=== PATIENT | female | born 1990 | race African-American/Black ===

== ENCOUNTER 2024-07-11 11:56 | Emergency (ER) | payer SELFPAY ==
[2024-07-11] MEDS ORDERED: dexAMETHasone 10 MG/ML VIAL ONE (13:00)
--- NOTE | 2024-07-11 13:38 | RAD REPORT ---
Procedure: Chest Pa And Lat (2 Views) HISTORY: Cough COMPARISON: none FINDINGS: The lungs appear clear of acute infiltrate. No significant pleural effusion noted. The heart is normal size. IMPRESSION: No acute abnormality is displayed.
[2024-07-11 13:40] LABS: Influenza A Ag Negative; Influenza B Ag Negative; SARS-CoV-2 Antigen Rapid Res Negative (Negative)
--- NOTE | 2024-07-11 13:55 | ER ---
Nurse's Notes [facility] Name: Estela Rowe Age: 34 yrs Sex: Female : 1990 Arrival Date: 07/11/2024 Time: 11:56 Bed 10 Private MD: Diagnosis: Streptococcal tonsillitis Presentation: 07/11 12:18 Chief complaint: Patient states: Cough, congestion, WILSON, body aches, sore throat since ll1 . Coronavirus screen: Client denies travel out of the [place] in the last 14 days. congestion, cough unrelated to allergies, fatigue, fever, headache, Client presents with at least one sign or symptom that may indicate coronavirus-19. Standard/surgical mask placed on the client. Ebola Screen: Patient denies travel to an Ebola-affected area in the 21 days before illness onset. Resp Distress? No respiratory distress is noted at this time. Initial Sepsis Screen: Does the patient meet any 2 criteria? No. Patient's initial sepsis screen is negative. Does the patient have a suspected source of infection? No. Patient's initial sepsis screen is negative. Risk Assessment: Do you want to hurt yourself or someone else? Patient reports no desire to harm self or others. Onset of symptoms was July 09, 2024. 12:18 Method Of Arrival: Ambulatory ll1 12:18 Acuity: BELA 4 ll1 Triage Assessment: 12:18 General: Appears in no apparent distress. Behavior is calm, cooperative, appropriate ll1 for age. General: Reports fatigue for. Pain: Complains of pain in head Quality of pain is described as aching. EENT: Reports nasal discharge pain when swallowing. Neuro: Reports headache. Respiratory: Reports cough that is. 14:09 Respiratory: No deficits noted. 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 - Infectious Disease History:: Denies. - Social history:: Smoking status: Patient denies any tobacco usage or history of. Screenin:18 [facility] ED Fall Risk Assessment (Adult) History of falling in the last 3 months, ap3 including since admission No falls in past 3 months (0 pts) Confusion or Disorientation No (0 pts) Intoxicated or Sedated No (0 pts) Impaired Gait No (0 pts) Mobility Assist Device Used No (0 pt) Altered Elimination No (0 pt) Score/Fall Risk Level 0 - 2 = Low Risk Oriented to surroundings, Maintained a safe environment, Educated pt \T\ family on fall prevention, incl call for assistance when getting out of bed, Assessed \T\ reinforced patient's understanding of fall precautions, Hourly rounding (assess needs \T\ fall precautionary measures) done, Used ambulatory aids as needed (educated on \T\ assisted with). Abuse screen: Denies threats or abuse. Nutritional screening: No deficits noted. Tuberculosis screening: No symptoms or risk factors identified. Assessment: 13:17 General: Appears ill, Behavior is calm, cooperative, appropriate for age. Pain: ap3 Complains of pain in head. Neuro: Level of Consciousness is awake, alert, obeys commands, Oriented to person, place, time, situation, Appropriate for age. Cardiovascular: Patient's skin is warm and dry. Respiratory: Airway is patent Respiratory effort is even, unlabored, Respiratory pattern is regular, symmetrical. Vital Signs: 12:18 BP 143 / 88; Pulse 78; Resp 18; Temp 98.5(O); Pulse Ox 100% ; Weight 122.47 kg; Height ll1 5 ft. 6 in. ; Pain 7/10; 12:18 Body Mass Index 43.58 (122.47 kg, 167.64 cm) ll1 12:18 Pain Scale: Adult ll1 ED Course: 12:00 Patient arrived in ED. rg4 12:20 Triage completed. ll1 12:20 Arm band placed on Patient placed in an exam room, on a stretcher. ll1 12:21 Cassandra Tracey, PAU is Primary Nurse. ap3 12:26 Rivera Garcia FNP-C is PHCP. dr5 12:26 Hemanth Queen MD is Attending Physician. dr5 13:14 Group A Streptococcus Rapid Sent. ap3 13:14 COVID-19 Ag + Flu A+B Ag Sent. ap3 13:18 No provider procedures requiring assistance completed. ap3 13:24 Chest Pa And Lat (2 Views) XRAY In Process Unspecified. EDMS 14:09 Patient did not have IV access during this emergency room visit. ap3 14:10 Patient has correct armband on for positive identification. Adult w/ patient. Provided ap3 Education on: medications prior to administration . Administered Medications: 13:14 Drug: Dexamethasone IM 10 mg IM once Route: IM; Site: right deltoid; ap3 14:09 Follow up: Response: No adverse reaction; Pain is decreased ap3 Medication: 14:10 VIS not applicable for this client. ap3 Outcome: 13:55 Discharge ordered by . dr5 14:09 Condition: good ap3 14:11 Discharged to home ambulatory, with family, ap3 14:11 Discharge instructions given to patient, family, Instructed on discharge instructions, follow up and referral plans. medication usage, Demonstrated understanding of instructions, follow-up care, medications, Prescriptions given X 1, 14:11 Patient left the ED. ap3 Signatures: Dispatcher [employer] EDMN Brittnee Saunders rg4 Cassandra Tracey RN RN ap3 Tina Donato RN RN ll1 Rivera Garcia, PLANNER SCHEDULER-C PLANNER SCHEDULER-Cdr5 Corrections: (The following items were deleted from the chart) 13:16 12:18 EENT: Reports nasal discharge ll1 ll1
--- NOTE | 2024-07-11 13:55 | EDPHYS ---
Physician Documentation [facility] Name: Estela Rowe Age: 34 yrs Sex: Female : 1990 Arrival Date: 07/11/2024 Time: 11:56 Bed 10 Private MD: ED Physician Hemanth Queen HPI: 07/11 15:51 This 34 yrs old Black Female presents to ER via Ambulatory with complaints of dr5 Congestion, Headache. 15:51 Onset: The symptoms/episode began/occurred 2 day(s) ago. Patient is a 34-year-old dr5 female with no past history coming in with sore throat, cough, congestion this been going on for the past 2 days. Patient reports that she has been congested with subjective fevers. Patient has taken NyQuil and DayQuil with mild relief. 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 - Infectious Disease History:: Denies. - Social history:: Smoking status: Patient denies any tobacco usage or history of. ROS: 15:51 Constitutional: as per hpi dr5 Exam: 15:51 Constitutional: This is a well developed, well nourished patient who is awake, alert, dr5 and in no acute distress. Head/Face: Normocephalic, atraumatic. Eyes: Pupils equal round and reactive to light, extra-ocular motions intact. Lids and lashes normal. Conjunctiva and sclera are non-icteric and not injected. Cornea within normal limits. Periorbital areas with no swelling, redness, or edema. Neck: Trachea midline, no thyromegaly or masses palpated, and no cervical lymphadenopathy. Supple, full range of motion without nuchal rigidity, or vertebral point tenderness. No Meningismus. Chest/axilla: Normal chest wall appearance and motion. Nontender with no deformity. No lesions are appreciated. Cardiovascular: Regular rate and rhythm with a normal S1 and S2. Normal PMI, no JVD. No pulse deficits. Respiratory: Lungs have equal breath sounds bilaterally, clear to auscultation. No rales, rhonchi or wheezes noted. No increased work of breathing, no retractions or nasal flaring. Back: No spinal tenderness. No costovertebral tenderness. Full range of motion. Skin: Warm, dry with normal turgor. Normal color with no rashes, no lesions, and no evidence of cellulitis. Neuro: Awake and alert, GCS 15, oriented to person, place, time, and situation. Cranial nerves II-XII grossly intact. Motor strength 5/5 in all extremities. Sensory grossly intact. Cerebellar exam normal. Normal gait. 15:51 ENT: Mouth: Posterior pharynx: Airway: normal, Tonsils: bilaterally enlarged, with erythema, with exudate, 15:51 ENT: Posterior pharynx: Uvula: normal, midline, dr5 Vital Signs: 12:18 BP 143 / 88; Pulse 78; Resp 18; Temp 98.5(O); Pulse Ox 100% ; Weight 122.47 kg; Height ll1 5 ft. 6 in. ; Pain 7/10; 12:18 Body Mass Index 43.58 (122.47 kg, 167.64 cm) ll1 12:18 Pain Scale: Adult ll1 MDM: 12:27 Medical Screening Exam initiated dr5 15:51 Differential diagnosis: viral Infection, bacterial infection, URI, Strep, Flu, dr5 COVID-19. Data reviewed: vital signs, nurses notes, lab test result(s), Strep. I considered the following discharge prescriptions or medication management in the emergency department Medications were administered in the Emergency Department. See MAR. Care significantly affected by the following chronic conditions:. Care significantly affected by the following Social Determinants of Health: Poor access to healthcare and/or lack of insurance, Poor access to transportation, Problems related to employment. Counseling: I had a detailed discussion with the patient and/or guardian regarding the historical points, exam findings, and any diagnostic results supporting the discharge/admit diagnosis, the presence of at least one elevated blood pressure reading (>120/80) during this emergency department visit, lab results, the need for outpatient follow up, for definitive care, an ENT specialist, a family practitioner, to return to the emergency department if symptoms worsen or persist or if there are any questions or concerns that arise at home. ED course: Patient was given dexamethasone IM x 1 to help with swelling of tonsils. Patient found to have strep tonsillitis and will treat with 500 mg amoxicillin twice a day for 10 days. Recommended taking ibuprofen and Tylenol to help with fever and pain. Recommended changing out toothbrush after antibiotics have been started. Increase hydration. STRICT ER precautions given.. 03 12:38 Order name: COVID-19 Ag + Flu A+B Ag; Complete Time: 13:54 dr5 07/11 12:38 Order name: Group A Streptococcus Rapid; Complete Time: 13:54 dr5 07/11 12:38 Order name: Chest Pa And Lat (2 Views) XRAY; Complete Time: 13:40 dr5 Administered Medications: 13:14 Drug: Dexamethasone IM 10 mg IM once Route: IM; Site: right deltoid; ap3 14:09 Follow up: Response: No adverse reaction; Pain is decreased ap3 Disposition Summary: 07/11/24 13:55 Discharge Ordered Notes: Location: Home dr5 Condition: Stable dr5 Diagnosis - Streptococcal tonsillitis dr5 Followup: dr5 - With: Emergency Department - When: As needed - Reason: Worsening of condition Followup: dr5 - With: Private Physician - When: 1 - 2 days - Reason: Recheck today's complaints, Continuance of care, Re-evaluation by your physician Discharge Instructions: - Discharge Summary Sheet dr5 - Strep Throat, Adult dr5 Forms: - Medication Reconciliation Form dr5 - Antibiotic Education dr5 - Patient Portal Instructions dr5 - Leadership Thank You Letter dr5 Prescriptions: - Amoxicillin 500 mg Oral capsule - take 1 capsule ORAL route 2 times per day for 10 days; 20 tablet; Refills: 0, dr5 Product Selection Permitted Signatures: Dispatcher [employer] Cassandra Parmar RN RN ap3 Tina Donato RN RN ll1 Rivera Garcia, OPERATOR AND TRUCK DRIVER-C OPERATOR AND TRUCK DRIVER-Cdr5 Corrections: (The following items were deleted from the chart) 12:38 12:38 Chest Pa And Lat (2 Views)+[email or web address] ordered. EDMS EDMS
[2024-07-11 14:27] VITALS: BP 143/88; TEMP 98.5; O2SAT 100
== END 2024-07-11 14:11 | disposition home or self-care (01) ==
LOC: ER 11:56
DX: J03.00 Acute streptococcal tonsillitis, unspecified (principal); Z11.52 Encounter for screening for COVID-19
CPT/HCPCS: 36415; 71046; 87428; 96372; 99284; J1100